=== PATIENT | female | born 1995 | race Caucasian/White ===

== ENCOUNTER 2017-04-24 20:18 | Emergency (ER) | payer BC, OTHER ==
[~2017-04-24 20:18] MED LIST: FLEXERIL10 MG PO; NAPROSYN500 MG PO
[2017-04-27 11:49] LABS: CHLAMYDIA TRACH Not Detected (Not Detected); N GONOR Not Detected (Not Detected)
== END 2017-04-24 21:40 | disposition home or self-care (01) ==
LOC: SED 20:18
PROVIDERS: Emergency Medicine
DX: Z20.2 Contact with and (suspected) exposure to infections with a predominantly sexual mode of transmission (principal)
CPT/HCPCS: 87491; 87591; 87808; 87905; 96372; 99284; J0696